=== PATIENT | male | born 1995 | race African-American/Black ===

== ENCOUNTER 2021-09-05 14:16 | Emergency (ER) | payer OTHER ==
[~2021-09-05] VITALS: Ht 177.8 cm; Wt 93.2 kg
[2021-09-05 14:19] VITALS: BP 104/35
[2021-09-05] MEDS ORDERED: IBUP-1984 PO (16:26)
== END 2021-09-05 16:45 | disposition home or self-care (01) ==
LOC: ER 14:16
DX: M25.561 Pain in right knee (principal); Z79.899 Other long term (current) drug therapy
CPT/HCPCS: 29505; 73564; 99283